=== PATIENT | male | born 1965 | race Caucasian/White ===

== ENCOUNTER 2019-03-24 12:42 | Emergency (ER) | payer OTHER ==
[2019-03-24 12:57] VITALS: BP 138/69; PULSE 66; TEMP 98.4; BMI 26.4
--- NOTE | 2019-03-24 13:03 | PDOC ---
History of Present Illness - General Chief Complaint: Pain Stated Complaint: PAIN Time Seen by Provider: 03/24/19 13:03 Past History - Past Medical History Allergies/Adverse Reactions: Allergies Allergy/AdvReac Type Severity Reaction Status Date / Time No Known Allergies Allergy Verified 05/25/17 17:58 Home Medications: Ambulatory Orders Enalapril Maleate [Vasotec] 10 mg PO DAILY 11/03/14 Escitalopram Oxalate [Lexapro -] 10 mg PO DAILY 11/03/14 Metoprolol Tartrate 25 mg PO DAILY 11/03/14 Anemia: (HIGH IRON) Asthma: No Cancer: No Cardiac Disorders: No CVA: No COPD: No CHF: No Diabetes: No GI Disorders: No Disorders: No HTN: Yes Hypercholesterolemia: No Liver Disease: No Seizures: No Thyroid Disease: No Other medical history: LIVER DISEASE - Surgical History Abdominal Surgery: No Appendectomy: No Cardiac Surgery: No Cholecystectomy: No Lung Surgery: No Neurologic Surgery: No Orthopedic Surgery: Yes (L ankle sx) - Psycho Social/Smoking Cessation Hx Smoking History: Never smoked Have you smoked in the past 12 months: No Information on smoking cessation initiated: No Hx Alcohol Use: No Drug/Substance Use Hx: No Substance Use Type: None *Physical Exam - Vital Signs Last Vital Signs Temp Pulse Resp BP Pulse Ox 98.4 F 66 20 138/69 99 03/24/19 12:43 03/24/19 12:43 03/24/19 12:43 03/24/19 12:43 03/24/19 12:43 Discharge - Discharge Information Problems reviewed: Yes Clinical Impression/Diagnosis: Foot pain Qualifiers: Laterality: left Qualified Code(s): M79.672 - Pain in left foot Condition: Good Disposition: HOME - Admission No - Follow up/Referral - Patient Discharge Instructions Patient Printed Discharge Instructions: DI for Foot Pain Additional Instructions: you came to the ED for foot pain. This pain is most likely caused by something pressing on the nerves. You should make sure that your socks and shoes are not too tight, and elevate your feet as much as positive. You can take the motrin prescribed to help with the discomfort, and should make an appointment to see Dr. Saunders if you still have symptoms after one week. - Post Discharge Activity
[2019-03-24] MEDS ORDERED: IBUPROFEN 600 MG TABLET (FP) PO ONE ×2 (13:43→13:46)
== END 2019-03-24 13:53 | disposition home or self-care (01) ==
LOC: FER 12:42
DX: M79.672 Pain in left foot (principal); I10 Essential (primary) hypertension; K92.9 Disease of digestive system, unspecified
CPT/HCPCS: 99282-25

== ENCOUNTER 2019-05-15 10:11 | Emergency (ER) | payer OTHER ==
[2019-05-15 10:24] VITALS: BMI 26.4
[2019-05-15 10:25] VITALS: TEMP 97.6
[2019-05-15] MEDS ORDERED: LACTATED RINGERS SOLUTION 1,000 ML/1,000 ML INFUS.BAG IV STA (10:56)
[2019-05-15] MEDS ORDERED: METOCLOPRAMIDE HCL INJECTION 10 MG/2 ML VIAL IVPUSH ONE (10:56)
[2019-05-15] MEDS ORDERED: METOCLOPRAMIDE HCL INJECTION 10 MG/2 ML VIAL ONE (11:16)
--- NOTE | 2019-05-15 11:26 | PDOC ---
Documentation entered by Christiano Claire SCRIBE, acting as scribe for Jazzy Gonzales MD. Jazzy Gonzales MD: This documentation has been prepared by the Dakotah pearl Elijah, SCRIBE, under my direction and personally reviewed by me in its entirety. I confirm that the documentation accurately reflects all work, treatment, procedures, and medical decision making performed by me. History of Present Illness - General Chief Complaint: Lightheaded Stated Complaint: SENT BY DOC History Source: Patient Exam Limitations: No Limitations - History of Present Illness Initial Comments: 05/15/19 11:03 Patient is a 54 year old male with a significant past medical history of Cirrhosis, Metabolic Syndrome, High Iron, Broken Fibia/Tibia, HTN, Matthew's Esophagus, Esophageal varices who presents today with a Metallic taste and Headache beginning x2 weeks ago. Patient described the metallic taste as ammonia. Patient reports the headaches having occurred intermittently in the past is pressure-like, located in the back of the head and is now associated with a sense of disorientation that began x2 weeks ago, lasts for a few seconds , worsens with movement and prompted the visit today. Patient denies fall, trauma, changes in medication, Nausea, vomiting, changes in BM, Changes in Appetite, tinnitus, SOB and Fever. Allergies: NKA Past History - Past Medical History Allergies/Adverse Reactions: Allergies Allergy/AdvReac Type Severity Reaction Status Date / Time No Known Allergies Allergy Verified 05/15/19 10:24 Home Medications: Ambulatory Orders Enalapril Maleate [Vasotec] 10 mg PO DAILY 11/03/14 Famotidine [Pepcid -] 20 mg PO BID #14 tablet 05/15/19 Lactulose (Oral Use) [Cephulac -] 20 gm PO TID #1 bottle 05/15/19 Nadolol 20 mg PO DAILY 05/15/19 Rifaximin [Xifaxan -] 550 mg PO BID #14 tablet 05/15/19 Anemia: (HIGH IRON) Asthma: No Cancer: No Cardiac Disorders: No CVA: No COPD: No CHF: No Diabetes: No GI Disorders: No Disorders: No HTN: Yes Hypercholesterolemia: No Liver Disease: Yes (HIGH LIVER ENZYMES) Seizures: No Thyroid Disease: No - Surgical History Abdominal Surgery: No Appendectomy: No Cardiac Surgery: No Cholecystectomy: No Lung Surgery: No Neurologic Surgery: No Orthopedic Surgery: Yes (L ankle sx) - Psycho Social/Smoking Cessation Hx Smoking History: Never smoked Have you smoked in the past 12 months: No Information on smoking cessation initiated: No Hx Alcohol Use: No Drug/Substance Use Hx: No Substance Use Type: None Review of Systems - Review of Systems Comments:: 05/15/19 11:04 GENERAL/CONSTITUTIONAL: No fever or chills. No weakness. HEAD, EYES, EARS, NOSE AND THROAT: +Metallic Taste No change in vision. No ear pain or discharge. No sore throat. CARDIOVASCULAR: No chest pain or shortness of breath. RESPIRATORY: No cough, wheezing, or hemoptysis. GASTROINTESTINAL: No nausea, vomiting, diarrhea or constipation. GENITOURINARY: No dysuria, frequency, or change in urination. MUSCULOSKELETAL: No joint or muscle swelling or pain. No neck or back pain. SKIN: No rash NEUROLOGIC: +headache, +Change in sensation No loss of consciousness, ENDOCRINE: No increased thirst. No abnormal weight change. HEMATOLOGIC/LYMPHATIC: No anemia, easy bleeding, or history of blood clots. ALLERGIC/IMMUNOLOGIC: No hives or skin allergy. *Physical Exam - Vital Signs Last Vital Signs Temp Pulse Resp BP Pulse Ox 97.6 F 69 20 138/77 99 05/15/19 10:19 05/15/19 10:19 05/15/19 10:19 05/15/19 10:19 05/15/19 10:19 - Physical Exam 05/15/19 11:05 GENERAL: Awake, alert, and fully oriented, in no acute distress HEAD: No signs of trauma EYES: PERRLA, EOMI, sclera anicteric, conjunctiva clear ENT: Auricles normal inspection, hearing grossly normal, nares patent, oropharynx clear without exudates. Moist mucosa NECK: Normal ROM, supple, no lymphadenopathy, JVD, or masses LUNGS: Breath sounds equal, clear to auscultation bilaterally. No wheezes, and no crackles HEART: Regular rate and rhythm, normal S1 and S2, no murmurs, rubs or gallops BACK: No tenderness Mid-Line ABDOMEN: +Liver Edge is Palpable. EXTREMITIES: Normal range of motion, no edema. No clubbing or cyanosis. No cords, erythema, or tenderness NEUROLOGICAL: Cranial nerves II through XII grossly intact. Normal speech, normal gait SKIN: Warm, Dry, normal turgor, no rashes or lesions noted. ED Treatment Course - LABORATORY CBC & Chemistry Diagram: 05/15/19 11:30 05/15/19 14:40 - ADDITIONAL ORDERS Additional order review: 05/15/19 18:38 Laboratory Tests 05/15/19 05/15/19 05/15/19 11:30 11:30 14:40 WBC 5.9 AST 62 H ALT 76 H Alkaline Phosphatase 142 H Ammonia 86.10 H Ammonia elevated, pt does not prior ammonia States he feels a little "foggy" but pt is not somnolent, A&O x 3 and feeling better after reglan/fluids. Labs discussed w/ Dr. Irizarry. OK to DC w/ dx of mild HE on Lactulose, Rifaxamine and Pepcid. Will see the pt in the office 10am tomorrow. - RADIOLOGY Radiology Studies Ordered: Category Date Time Status HEAD CT WITHOUT CONTRAST [CT] Stat CT Scan 05/15/19 10:55 Ordered CHEST PA & LAT [RAD] Stat Radiology 05/15/19 10:55 Ordered Medical Decision Making - Medical Decision Making 05/15/19 11:23 54yoM w/ hepatic cirrhosis 2/2 chronic iron overload, matthew's esophagus, esophageal varices not on any GI meds presents w/ 2 weeks of "headaches" and "bad taste in my mouth". Denies difficulty eating/drinking. Headaches are pressure-like, associated w/ a few seconds of room-spinning/motion sensation with change in position which may be indicative of vertigo. Had has similar headaches in the past, multiple years ago. Of note, pt w/ prior hx of MS diagnosis which was then rescinded as "incorrect." - hct - labs - sxs control - reeval and dispo per results. Discharge - Discharge Information Problems reviewed: Yes Clinical Impression/Diagnosis: Hepatic encephalopathy Condition: Good Disposition: HOME - Admission No - Additional Discharge Information Plan of Treatment: Please see Dr. Irizarry in his office TOMORROW MORNING, 10am. He is aware of your ED visit today. You have been prescribed medications: Rifaxamine 550mg 2x daily Lactulose 20mg 3x daily Pepcid 20mg 2x daily. Dr. Irizarry may adjust these doses in the office tomorrow. Return to the ER for: increasing confusion or somnolence black or red stools vomiting blood or black material Fever over 100.4 Prescriptions: Famotidine [Pepcid -] 20 mg PO BID #14 tablet Lactulose (Oral Use) [Cephulac -] 20 gm PO TID #1 bottle Rifaximin [Xifaxan -] 550 mg PO BID #14 tablet - Follow up/Referral Referrals: Ponce Dupree [Primary Care Provider] - - Patient Discharge Instructions - Post Discharge Activity
[2019-05-15 11:59] LABS: VENOUS PC02 44.8 mmHg (38-52)
[2019-05-15 12:05] LABS: VENOUS PO2 < 49 mmHg (28-48)
--- NOTE | 2019-05-15 12:35 | EKG ---
Test Reason : Blood Pressure : / mmHG Vent. Rate : 062 BPM Atrial Rate : 062 BPM P-R Int : 162 ms QRS Dur : 082 ms QT Int : 398 ms P-R-T Axes : 019 061 039 degrees QTc Int : 403 ms NORMAL SINUS RHYTHM NORMAL ECG WHEN COMPARED WITH ECG OF 01-MAY-2017 15:37, NO SIGNIFICANT CHANGE WAS FOUND Confirmed by MD Loera Edward ([id number]) on 05/15/2019 12:34:37 PM Referred By: Confirmed By:Oscar Loera MD
[2019-05-15 12:59] LABS: BASO % 0.7 % (0-2.0); EOS % 2.6 % (0-4.5); HEMATOCRIT 49.4 % (35.4-49); HEMOGLOBIN 17.1 GM/dL (11.7-16.9); LYMPH % 28.6 % (8-40); MCH 32.6 pg (25.7-33.7); MCHC 34.7 g/dl (32.0-35.9); MEAN PLT VOLUME 10.3 fl (7.5-11.1); NEUT % 59.1 % (42.8-82.8); PLATELET COUNT 128 K/MM3 (134-434); RBC 5.26 M/mm3 (4.00-5.60); RDW 14.2 % (11.9-15.9); WHITE BLOOD COUNT 5.9 K/mm3 (4.0-10.0)
[2019-05-15 13:10] LABS: INR 1.29 (0.83-1.09); PROTHROMBIN TIME (PATIENT) 15.3 SEC (9.7-13.0)
[2019-05-15 13:12] LABS: ACTIVATED PTT 34.9 SECONDS (25.2-36.5)
[2019-05-15 15:31] VITALS: PULSE 56
[2019-05-15 15:40] LABS: ALBUMIN 3.6 g/dl (3.4-5.0); BLOOD UREA NITROGEN 9.5 mg/dL (7-18); CREATININE 0.7 mg/dL (0.55-1.3); POTASSIUM 4.8 mmol/L (3.5-5.1); TOT PROT 7.1 g/dl (6.4-8.2)
[2019-05-15] MEDS ORDERED: LACTULOSE 20 GM/30 ML UDC (FOR ORAL USE ONLY) PO ONE (18:20)
[2019-05-15] MEDS ORDERED: FAMOTIDINE 20 MG TABLET PO ONE (18:45)
[2019-05-15] MEDS ORDERED: LACTULOSE 20 GM/30 ML UDC (FOR ORAL USE ONLY) ONE (18:55)
[2019-05-15] MEDS ORDERED: FAMOTIDINE 20 MG TABLET ONE (18:56)
[2019-05-15 19:21] VITALS: BP 111/69
[2019-05-15] MEDS ORDERED: RIFAXIMIN 550 MG TABLET (UD) PO SCH (22:00)
== END 2019-05-15 19:22 | disposition home or self-care (01) ==
LOC: JER 10:11
PROC: 3E0337Z Introduction of Electrolytic and Water Balance Substance into Peripheral Vein, Percutaneous Approach (ICD-10-PCS; principal; 2019-05-15)
PROC: 3E033GC Introduction of Other Therapeutic Substance into Peripheral Vein, Percutaneous Approach (ICD-10-PCS; 2019-05-15)
DX: K72.90 Hepatic failure, unspecified without coma (principal); K22.70 Barrett's esophagus without dysplasia; I85.00 Esophageal varices without bleeding; I10 Essential (primary) hypertension; K74.60 Unspecified cirrhosis of liver; E88.81 Metabolic syndrome and other insulin resistance
CPT/HCPCS: 36415; 70450-TC; 71046-TC-FY; 80053; 82140; 82803; 82962; 83605; 85025; 85610; 85730; 93005; 93010; 96361; 96375; 99285-25

== ENCOUNTER 2022-09-18 13:12 | Emergency (ER) | payer OTHER ==
[2022-09-18 13:15] VITALS: BP 144/74; PULSE 97; RESP 18; TEMP 97.8; BMI 29.5
[2022-09-18] MEDS ORDERED: DIPHTH,PERTUSS(ACELL),TET 0.5 ML DISP.SYRIN IM ONE ×2 (13:52→14:00)
[2022-09-18] MEDS ORDERED: BACITRACIN ZINC 15 GM TUBE TOPICAL OINTMENT ONE (14:54)
[2022-09-18] MEDS ORDERED: AMOX TR/POT CLAV 875MG/125MG TABLETS (FP) PO ONE (15:07)
[2022-09-18] MEDS ORDERED: AMOX TR/POT CLAV 875MG/125MG TABLETS (FP) ONE (15:16)
== END 2022-09-18 15:25 | disposition home or self-care (01) ==
LOC: JER 13:12
PROC: 3E0234Z Introduction of Serum, Toxoid and Vaccine into Muscle, Percutaneous Approach (ICD-10-PCS; principal; 2022-09-18)
DX: S51.051A Open bite, right elbow, initial encounter (principal); W54.0XXA Bitten by dog, initial encounter; Y93.01 Activity, walking, marching and hiking; Z23 Encounter for immunization
CPT/HCPCS: 90471; 90715; 99283-25